=== PATIENT | female | born 1985 | race African-American/Black ===

== ENCOUNTER 2016-12-29 15:36 | Emergency (ER) | payer OTHER ==
[~2016-12-29] VITALS: Ht 167.6 cm; Wt 72.3 kg
[2016-12-29 16:10] VITALS: BP 110/76
--- NOTE | 2016-12-29 16:45 | NUR ---
31/F BIB FAMILY C/O HEADACHES LEFT SIDED X5 DAYS/ RIGHT HAND PARESTHESIA PROGRESSING TO NUMBNESS X 3 DAYS/ SLURRED SPEECH X TODAY. DENIES RECENT INJURY, RECENT VAGINAL DELIVERY 11/23/2016.NO DRIFT, TONGUE MIDLINE, NO FACIAL ASYMMETRY NOTED, FULL CLEAR SPEECH AT THIS TIME, PT DENIES PAIN AT THIS TIME. ERMD NOTIFIED OF PATIENT STATUS.
--- NOTE | 2016-12-29 16:55 | NUR ---
Patient being evaluated by physician at bedside.
--- NOTE | 2016-12-29 19:13 | NUR ---
Pt report given to PEDRO AVITIA. Transfer of care at this time.
--- NOTE | 2016-12-29 19:14 | NUR ---
RECEIVED REPORT FROM DAY NURSE PEDRO GUPTA FOR TRANSFER OF CARE. PT IS [phone]. DENIES ANY PAIN AT THIS TIME. BOYFRIEND CHESTER AT BEDSIDE AT THIS TIME.
--- NOTE | 2016-12-29 19:41 | NUR ---
Patient to be transferred to [facility]. Is being transferred due to HIGHER LEVEL OF CARE. Receiving facility has accepting physician and available space. ER physician has signed transfer form. Patient or responsible republican has agreed to transfer and signed form. Patient belongings inventoried and will be sent with patient. Copy of nursing notes, lab reports, EKG, Physicians Orders and X-rays to be sent with patient. Report called to PEDRO MATA at receiving facility. [facility] ambulance service has been called for transfer. ETA is FOR 1999.
[2016-12-29 19:58] VITALS: BP 143/65
--- NOTE | 2016-12-29 19:58 | NUR ---
[facility] PICKED UP PATIENT AND IS TRANSFERING TO [facility] AT THIS TIME. PT VITALS STABLE. PT AAOX 4.
[2016-12-29] MEDS ORDERED: levETIRAcetam 1,000 MG in NACL 0.9% 100 ML IV SCH (21:00)
== END 2016-12-29 19:58 | disposition short-term general hospital (02) ==
LOC: MED 15:36
DX: I62.01 Nontraumatic acute subdural hemorrhage (principal)